=== PATIENT | female | born 1965 | race Caucasian/White ===

== ENCOUNTER → 2016-06-20 | Day surgery (SDC) | payer OTHER ==
[~2016-06-20] MED LIST: BACTRIM DS TABL1 TA1 PO; HYDROCODONE/APA1 T16 PO; PYRIDIUM PO
--- NOTE | ~2016-06-20 | OR ---
Unit #: [id number] #: [id number] Patient: MONTANA GLEASON [id number] [address] [place], [place] [address] [id number] MR#: [id number] NAME: MONTANA GLEASON ROOM: Date of Procedure: 06/20/2016 Admission Date: 06/20/2016 Surgeon: Fabricio Osborn M.D. : 1965 Attending Physician: Fabricio Osborn M.D. Primary Care Physician: Primary Care Physician No OPERATIVE REPORT PREOPERATIVE DIAGNOSIS Left ureteral and renal calculi. POSTOPERATIVE DIAGNOSIS Left ureteral and renal calculi. PROCEDURES PERFORMED 1. Cystoscopy. 2. Left ureteroscopy. 3. Laser lithotripsy. 4. Stone basket extraction. 5. Left retrograde pyelogram. 6. Interpretation of left retrograde pyelogram. 7. Left 6-Malawian x 26 cm double-J stent. ANESTHESIA General. INDICATIONS FOR PROCEDURE Ms. Gleason is a pleasant 51-year-old female who has a left distal ureteral stone, status post stent. She also has some left renal nonobstructing stones. Risks, benefits, and alternatives including bleeding, infection, damage to adjacent structures, need for further surgery, as well as risk of anesthesia were explained to the patient. Informed consent was obtained. She wished to proceed. DESCRIPTION OF PROCEDURE The patient was taken to the operative suite and properly identified. After the application of satisfactory general anesthetic, the patient was placed in dorsal lithotomy position. All pressure points were padded to satisfaction of surgical, anesthetic, and nursing teams. Her genitalia were prepped and draped in the usual sterile fashion. I introduced a rigid 22-Malawian cystoscope. I grasped the left double-J stent and brought it out of the meatus. I passed a 0.035 Sensor wire, which coiled in the left renal pelvis. I looked my way alongside the stent. There was a stone in the distal ureter. I used a 200 micron holmium laser fiber on settings of 0.6 J and 6 Hz. The stone fragmented well. It was removed atraumatically with a 2.4-Malawian nitinol basket. I then passed a 12 x 14-Malawian x 35 cm ureteral access sheath into the wire, which I passed into the proximal ureter. I passed a flexible ureteroscope through the sheath and performed panendoscopy of the kidney. She had a chronically dilated kidney with a large amount of debris where she had several medium Unit #: [id number] #: [id number] Patient: MONTANA GLEASON size stones in her lower pole and mid pole. I removed these by stone basket extraction. I shot a retrograde pyelogram and the interpretations were as follows. Interpretation of left retrograde pyelogram: There was a single collecting system. There were no filling defects. There was mild hydronephrosis. I mapped out the collecting system. I looked my way carefully out of the ureter. I replaced the wire. I passed a 6-Malawian x 26 cm double-J stent, which coiled in the upper pole of the kidney and in the bladder. I did leave the string attached. Bladder was emptied. The scope was removed. The Uro-jet was passed. The patient tolerated the procedure well without complications. PLAN We will remove the stent in 1 week. No x-rays are required. She does have the string. Dictated by... Sp Guevara/ronn TD: 06/21/2016 17:09 JOB #: [id number] OPERATIVE REPORT X Fabricio Osborn MD X PROCEDURE OPERATIVE NOTE
== END | disposition home or self-care (01) ==
LOC: CSUR 12:42
PROVIDERS: Urology
DX: N20.2 Calculus of kidney with calculus of ureter (principal)
CPT/HCPCS: 82365; 84703; 88300; C2617; J1580; J2250; J2405; J3010